=== PATIENT | male | born 1990 ===

== ENCOUNTER 2017-07-18 16:55 | Emergency (ER) | payer MEDICAID, OTHER ==
[2017-07-18 17:06] VITALS: BP 135/80
--- NOTE | 2017-07-18 17:41 | ED ---
Throat Pain/Nasal Congestion - HPI Summary HPI Summary: Pt here w/ acute on chronic visual changes x 2-3 days. 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 Before surgery he had "flashes" in both eyes and "floaters" in Lt eye. He is here today as he feels he's seeing more floaters than usual and the flashes are more frequent. He has a dull GARCIA and he's not sure if it's from his visual change or other causes (NOTE: he's had URI sx the past week - better now - took dayquil and nyquil w/o abnormal affects.) - History of Current Complaint Chief Complaint: EDEyeProblem Time Seen by Provider: 07/18/17 17:23 Hx Obtained From: Patient - Allergies/Home Medications Allergies/Adverse Reactions: Allergies Allergy/AdvReac Type Severity Reaction Status Date / Time No Known Allergies Allergy Verified 07/18/17 17:36 PMH/Surg Hx/FS Hx/Imm Hx Previously Healthy: Yes Endocrine/Hematology History: Denies: Hx Anticoagulant Therapy, Hx Blood Disorders Sensory History: Reports: Hx Contacts or Glasses Opthamlomology History: Reports: Hx Contacts or Glasses, Other Sensory Impairments - retinal tears - [facility] - Drs. 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 Negative: Weakness, Paresthesia, Numbness, Syncope, Slurred Speech Psychological: Normal All Other Systems Reviewed And Are Negative: Yes Physical Exam Triage Information Reviewed: Yes Vital Signs On Initial Exam: Initial Vitals Temp Pulse Resp BP Pulse Ox 97.6 F 86 14 135/80 98 08/28/17 17:03 07/18/17 17:03 07/18/17 17:03 07/18/17 17:03 07/18/17 17:03 Vital Signs Reviewed: Yes Appearance: Positive: Well-Appearing, No Pain Distress, Well-Nourished Skin: Positive: Warm, Dry Head/Face: Positive: Normal Head/Face Inspection - sinuses NTTP. Negative: TMJ Tenderness Eyes: Positive: Normal, EOMI, MILTON, Conjunctiva Clear, Other: - fundoscopic exam neg for patrizia hemorrhage, cotton wool spots, vascular distention; cornea and sclera area clear of lesions, irritation. Negative: Conjunctiva Inflammed, Discharge ENT: Positive: Normal ENT inspection, Hearing grossly normal, Pharynx normal, TMs normal. Negative: Nasal congestion, Nasal drainage, Tonsillar swelling, Tonsillar exudate Dental: Negative: Abscess @ Neck: Positive: Supple, Nontender, No Lymphadenopathy Respiratory/Lung Sounds: Positive: Clear to Auscultation, Breath Sounds Present Cardiovascular: Positive: Normal, RRR, Other - No carotid bruits appreciated upon auscultation Abdomen Description: Positive: Nontender, Soft. Negative: Pulsatile Mass Bowel Sounds: Positive: Present Musculoskeletal: Positive: Normal, Strength/ROM Intact Neurological: Positive: Normal, Sensory/Motor Intact, Alert, Oriented to Person Place, Time, CN Intact II-III, Facial Symmetry, Speech Normal. Negative: Disoriented, Pronator Drift Present Psychiatric: Positive: Normal Diagnostics - Vital Signs Vital Signs Temp Pulse Resp BP Pulse Ox 07/18/17 17:27 97.6 F 86 14 135/80 98 07/18/17 17:03 97.6 F 86 14 135/80 98 - Laboratory Lab Statement: Any lab studies that have been ordered have been reviewed, and results considered in the medical decision making process. EENT Course/Dx - Course Course Of Treatment: Spoke w/ pt's [facility] (Dr. Alvarado) - recommends evaluation by ophthomologist or retinal specialist in next 1-2 days. Spoke w/ Dr. Batool Clark who agrees to connect pt w/ Dr. Serafin Pineda who is on-call tomorrow. He will call pt and if pt does not hear from him, advised to call office to schedule appt. Advised to avoid exercise/activity in the meantime. - Diagnoses Provider Diagnoses: Visual changes, History of retinal tear Discharge - Discharge Plan Condition: Stable Disposition: HOME Patient Education Materials: Retinal Hemorrhage (ED) Additional Instructions: Although the definitive source of of your visual change was not determined today , your symptoms are clinically suspicious for advancing retinal tears. Advised close follow-up with ophthomoligist in the next 1-2 days. You should receive a call from Dr. Clark's office out [facility]. If you do not hear from their office by tomorrow afternoon, call before end of day to schedule an appointment for such concerns - . Dr. Alvarado, your retinal specialist, has agreed to provide his direct office number should your new provider have questions, etc - . In the meantime, avoid any activity that would increase blood pressure (ie, exercise, weight lifting, etc.) *If you have loss of vision or acute GARCIA, return to ED
== END 2017-07-18 18:50 | disposition home or self-care (01) ==
LOC: ED 16:55
DX: H53.9 Unspecified visual disturbance (principal); R51 Headache; Z86.69 Personal history of other diseases of the nervous system and sense organs
CPT/HCPCS: 99281